=== PATIENT | male | born 2005 | race Caucasian/White ===

== ENCOUNTER 2024-02-19 17:50 | Emergency (ER) | payer OTHER ==
[2024-02-19] MEDS: predniSONE 20 MG Tab PO STA (19:08)
[2024-02-19] MEDS: Ibuprofen 600 MG Tab PO ONE (19:08)
[2024-02-19] MEDS: Cyclobenzaprine 10 MG Tab PO ONE (19:08)
== END 2024-02-19 19:13 | disposition home or self-care (01) ==
LOC: MW.ED 17:50
DX: S49.92XA Unspecified injury of left shoulder and upper arm, initial encounter (principal); Z79.899 Other long term (current) drug therapy; Z75.8 Other problems related to medical facilities and other health care; X50.0XXA Overexertion from strenuous movement or load, initial encounter; Y93.89 Activity, other specified; Y99.0 Civilian activity done for income or pay
CPT/HCPCS: 73030; 99283; A9270

== ENCOUNTER 2024-04-15 18:54 | Emergency (ER) | payer BC, OTHER | END 2024-04-15 19:31 | disposition left against medical advice (07) | LOC: MW.ED 18:54 | DX: Z53.21 Procedure and treatment not carried out due to patient leaving prior to being seen by health care provider (principal) ==

== ENCOUNTER 2024-12-18 07:13 | Emergency (ER) | payer BC ==
[2024-12-18] MEDS: Ibuprofen 600 MG Tab PO ONE (08:25)
[2024-12-18] MEDS: Amoxicillin/Clavulanate K 875-125 MG Tab PO ONE (08:41)
== END 2024-12-18 08:47 | disposition home or self-care (01) ==
LOC: MW.ED 07:13
DX: K08.89 Other specified disorders of teeth and supporting structures (principal)
CPT/HCPCS: 99282; A9270